=== PATIENT | female | born 1990 | race Caucasian/White ===

== ENCOUNTER 2017-07-12 06:44 | Emergency (ER) | payer SELFPAY ==
[2017-07-12 06:45] VITALS: BP 120/73; PULSE 105; RESP 20; TEMP 37.1; O2SAT 98; BMI 21.2
--- NOTE | 2017-07-12 07:13 | CT_ITS ---
STUDY: CT BRAIN WITHOUT CONTRAST REASON FOR EXAM: Female, 27 years old. 3 day history of fever, headaches and stiff neck. RADIATION DOSAGE (If Supplied By Facility): CTDIvol = ( 44.99 ) mGy, DLP = ( 694.87 ) mGycm TECHNIQUE: Transaxial CT imaging of the brain was performed without administration of intravenous contrast material. Individualized dose optimization techniques were used for this CT. COMPARISON: None. FINDINGS: Normal soft tissue structures. Normal calvarium. Normal size ventricles and extra-axial spaces for the patient's age. Normal white matter tracts of the cerebral hemispheres. Normal basal ganglia and thalami. Normal brainstem. Normal cerebellum. There is no intracranial hemorrhage. There are no findings of an acute ischemic infarction. Normal visualized paranasal sinuses. CT/Brain/Head without Contrast IMPRESSION: Normal unenhanced CT scan of the brain. Electronically Signed: Arslan Fiore MD at 8:25 EDT Tel [phone], Service support ,
--- NOTE | 2017-07-12 07:13 | RAD_ITS ---
STUDY: X-RAY CHEST REASON FOR EXAM: Female, 27 years old. 3 day history of headaches, stiff neck and fever. TECHNIQUE: PA and lateral views of the chest. COMPARISON: None. FINDINGS: The lungs are clear and expanded. There is no demonstrated pleural abnormality. Normal size heart. Normal mediastinum and vish. Normal visualized pulmonary arteries. Normal visualized aortic arch and descending thoracic aorta. Normal visualized thoracic spine. Normal visualized ribs, clavicles, and shoulders. There is no demonstrated abnormality of the visualized soft tissue structures of the upper abdomen. RAD/Chest PA and Lateral IMPRESSION: Normal x-ray examination of the chest. Electronically Signed: Arslan Fiore MD at 8:25 EDT Tel [phone], Service support ,
--- NOTE | 2017-07-12 07:42 | ED.DCSUM_ITS ---
- ER Visit Summary Date of Service: 07/12/17 Chief Complaint: Fever headache neck pain History of Present Illness: The patient is a 27 F who states that 3 days ago she woke with pain in her occipital neck. She states she took her temperature is 100.8. She states that she has been treating the fever. She notes that her headache is generalized and she continues to have the pain in her neck. Is worse with flexion. She denies any URI symptoms. No urinary symptoms. There has been no rash or easy bruising or bleeding. She denies any mosquito bites [place] She notes in May she was scratched by a feral cat. She denies any lymphadenopathy. The patient went to urgent care yesterday and was given azithromycin. She has had 500 mg total. Physical Examination: 98.8 120/73 heart rate 105 respirations are 14 pulse ox 90% on room air Gen: Well-nourished well-developed Head: Normocephalic atraumatic Eyes: Perrl EOMI mild photophobia ENT: TMs clear no rhinorrhea moist mucous membranes Neck: Pain with flexion of the neck no lymphadenopathy no JVD nontender CVS: Regular rate rhythm no murmurs normal S1-S2 Respiratory: No distress clear to auscultation bilaterally chest nontender Abdomen: Soft nontender nondistended normal bowel sounds no masses Back: Nontender Extremity: Nontender no edema Skin: Normal color no rash Neuro: alert orientated ?3 CN II-XII intact normal strength sensation reflexes gait cerebellar Psych: Normal affect normal mood Test Results: CT brain and chest x-ray showed no acute findings. Cell count of LP was no white cells no red cells. Normal glucose protein. Gram stain negative. Basic blood work showed a slight shift and segmented neutrophils at a 7.2 otherwise negative. Influenza negative. Emergency Department Course and Treatment: Patient provided informed consent for lumbar puncture. Patient was laid on her right side and curled into the position. The skin was washed with iodine and sterilely prepped. The skin was locally anesthetized using 3 cc of 1% lidocaine. A 20-gauge spinal needle was introduced through the spinous process with palpable puncture of the dura. Clear spinal fluid was removed. 2 cc ?4 vials were removed. The bevel was orientated longitudinally. Stylette was replaced prior to withdrawal of the needle. Band-Aid was applied and Betadine washed. She will be discharged home with instructions for ibuprofen and/or Tylenol and rest and fluid hydration. She is to follow-up with primary care in 5-7 days if not improved. Impression: 1. Viral syndrome 2. Lumbar puncture by emergency physician This note was generated with [employer] dictation software. It may contain incorrect words, spelling, and punctuation that were not noted in review of the chart prior to signing ED Disposition - Plan for ED Patient: Disposition: Home or Assisted Living Chief Complaint: Fever Instructions: ED Viral Syndrome Referrals: Domingo Jain MD [STAFF PHYSICIAN] - (call to arrange follow up appointment )
--- NOTE | 2017-07-12 07:47 | CYSPIN_PTH ---
PATIENT: JULIAN MOTLEY LOC: ED U#:[id number] AGE/SX: 27/F ROOM: RE07/12/[address]: Dr. Kirk Hawkins DO : 1990 BED: DIS: 07/12/2017 SPEC #: [id number] RECD: 07/12/17 11:51 STATUS: MOY MATT #: [id number] LATOYA: 07/12/17 07:[address]: Kirk Hawkins DEPT: CYTOLOGY RECD BY: Sarkis Garcia ENTERED: 07/12/17 11:51 SP TYPE: CYSPIN FL OT DR: No Primary Care Phys Tissues: Cerebrospinal Fluid Procedures: Pap Stain (control) Special Stain Group II Cytospin Fluid HEADER OPERATION: Lumbar puncture PRE-OP DIAGNOSIS: Fever, headache, neck pain TISSUE SUBMITTED: Cerebrospinal fluid for cytology DIAGNOSIS CYTOLOGY Cerebrospinal fluid for cytology (cytospin): Acellular specimen. SJ:lety 07/15/17 CYTOLOGY STUDY Slides are reviewed. CYTOLOGY GROSS Received is 1 ml of clear colorless fluid labeled with the patient's name and and designated per the requisition as CSF. Submitted for cytology preparation. / 07/12/17 TC:4 CPT: 06746
[2017-07-12 07:52] LABS: Absolute Lymphocyte Count 0.64 X10^3/ul (0.83-4.51); Absolute Neutrophil Count 8.7 X10^3/uL (2.0-7.7); Basophil# 0.02 X10^3/uL; Basophil% 0.2 % (0-1); Eosinophil# 0.01 X10^3/uL; Eosinophils% 0.1 % (0-5); Hematocrit 40.3 % (37-47); Hemoglobin 13.6 g/dl (12.0-15.0); Lymphocyte # 0.64 X10^3/ul (4.0); Lymphocyte % 6.5 % (19-41); Mean Corp Hgb Conc 33.7 g/gl (32-36); Mean Corpuscular Hgb 30.5 pg (27.0-32.0); Mean Corpuscular Volume 90.4 fL (81-99); Mean Platelet Vol. 9.4 fl (6.2-12.0); Monocyte# 0.58 X10^3/uL; Monocyte% 5.9 % (0-10); Neutrophil # 8.65 X10^3/uL (2.7-7.7); Neutrophil % 87.2 % (47-70); Platelet Count 190 K/mm3 (150-450); RBC Distribution Width CV 12.3 % (11.6-14.6); RBC Distribution Width SD 41.1 fl (35.1-43.9); Red Blood Count 4.46 M/mm3 (4.2-5.4); White Blood Count 9.9 K/mm3 (4.4-11.0)
[2017-07-12 07:53] LABS: POSITIVE COUNT NO; POSITIVE DIFFERENTIAL NO; POSITIVE MORPHOLOGY NO
[2017-07-12 08:03] LABS: AST(SGOT) 10 U/L (15-37); Alanine Aminotransfer ALT/SGPT 15 U/L (13-56); Albumin, Serum 4.1 g/dL (3.2-5.0); Alkaline Phosphatase 50 U/L (45-117); Anion Gap 10 (5-15); BUN 8 mg/dL (7-18); BUN/Creat Ratio 10.4 RATIO (10-20); Calcium,Total 8.9 mg/dL (8.5-10.1); Chloride 101 mmol/L (98-107); Creatinine, Serum 0.77 mg/dL (0.55-1.02); EST Glomerular Filtration Rate 94 mL/min (>60); Est Glom Filt Rate - Afr Amer 114 mL/min (>60); Glucose 97 mg/dL (74-106); Potassium 3.4 mmol/L (3.5-5.1); Protein, Total 8.1 g/dL (6.4-8.2); Sodium Level 138 mmol/L (136-145)
[2017-07-12 08:08] LABS: Prothrombin Time (Protime)PT. 13.5 SECONDS (11.7-14.9)
[2017-07-12 08:09] LABS: Partial Thromboplast Time 29.7 Seconds (24.1-36.2)
[2017-07-12 08:12] LABS: Lactic Acid 0.9 mmol/L (0.4-2.0)
[2017-07-12 08:21] VITALS: BP 112/67; PULSE 102; RESP 19; O2SAT 97
[2017-07-12 08:47] LABS: Cytology, Body Fluid / CSF SEE PATHOLOGY REPORT
[2017-07-12 09:17] LABS: Glucose Spinal Fluid 62 mg/dL (40-75)
[2017-07-12 09:18] LABS: Appearance CSF (character) CLEAR (Clear); Auto B Fluid Analyzer BKGD Ct COUNTS W/IN LIMITS (W/IN LIMITS); CSF Color COLORLESS (Colorless); Tested Tube # 4
[2017-07-12 09:19] LABS: RBC Count, Spinal Fluid 0 /mm-3 (None seen)
[2017-07-12 09:36] LABS: Red Blood Cells-Urine 0 SEEN /hpf (0-5)
[2017-07-12 09:39] LABS: Internal QC Validated? YES +Cl - CLEAR BKGD
[2017-07-12 09:40] LABS: Color, Urine Yellow (Yellow); Glucose, Dipstick Normal (Normal); Leukocyte Esterase-Dipstick 500 /ul (Negative); Nitrite-Dipstick Negative (Negative); Occult Blood-Urine Negative /ul (Negative); Protein-Dipstick Negative (Negative); Specific Gravity, Urine 1.015 (1.002-1.030); Urine Bilirubin Dipstick Negative (Negative); Urine Clarity Sl. Cloudy (Clear); Urine Urobilinogen Normal (Normal)
[2017-07-12 09:41] LABS: Ketone-Dipstick 150 mg/dl (Negative)
[2017-07-12 09:48] LABS: Pregnancy, Urine Negative Negative
[2017-07-12 09:51] LABS: Bacteria 1+ /hpf (None Seen); Mucous, Urine 1+ /hpf (<or=2+); Squamous Epithelial Cells - UA 5-10 SEEN /hpf (5-10); White Blood Cells 5-10 SEEN /hpf (0-5)
[2017-07-12 10:00] VITALS: BP 112/72; PULSE 99; RESP 16; O2SAT 100
--- NOTE | 2017-07-12 10:34 | ED.RN ---
LAB CONTACTED FOR GRAM STAIN RESULTS
[2017-07-12 11:14] VITALS: BP 114/72; PULSE 83; RESP 16; O2SAT 100
--- NOTE | 2017-07-12 11:15 | ED.RN ---
THIS NURSE REVIEWED D/C INSTRUCTIONS WITH PT. PT VERBALIZED UNDERSTANDING OF INSTRUCTIONS. IV D/C. IV CATHETER INTACT. PT TOLERATED WELL. PT DENIES FURTHER NEEDS OR QUESTIONS AT THIS TIME.
[2017-07-16 11:06] LABS: Pathologist Review Reviewed
== END 2017-07-12 11:16 | disposition home or self-care (01) ==
PROVIDERS: Emergency Provider Emergency Medicine
DX: B34.9 Viral infection, unspecified (principal)
CPT/HCPCS: 36415; 62270; 70450; 71046; 80053; 81001; 81025; 82945; 83605; 84157; 85025; 85610; 85730; 87040; 87070; 87205; 87804; 88108; 88313; 89050; 89051; 99284; A4216

== ENCOUNTER 2018-08-02 18:30 | Emergency (ER) | payer MEDICAID, SELFPAY ==
[2018-08-02 18:33] VITALS: BP 123/71; PULSE 94; RESP 16; TEMP 36.8; O2SAT 99; BMI 22.7
--- NOTE | 2018-08-02 18:45 | ED.VISSUMM ---
- ER Visit Summary Date of Service: 08/02/18 Chief Complaint: Needs tetanus update History of Present Illness: The patient is a 28 F presents to the emergency department with injury to her right long finger. Patient states yesterday, she was trying a place on the hubcap that was positive. States her pain got pinched. States she had a small injury that was bleeding but it is since stopped. Her last tetanus was 12 years ago. She denies other injury. She is otherwise been in her normal state of health. Physical Examination: Exam is relatively unremarkable. Patient is a small abrasion of the distal phalanges on the palmar aspect of the right third finger. There is no streaking. Flexion and extension are preserved. There is no bleeding. The skin does not gap open. Test Results: [] Emergency Department Course and Treatment: The patient does have a well approximated injury. There is nothing that requires primary closure. Her tetanus is updated. She was counseled on wound care. She will be discharged home. Treatment Plan: [] Disposition: Discharge Impression: 1. Tetanus update 2. Finger abrasion This note was generated with [employer] dictation software. It may contain incorrect words, spelling, and punctuation that were not noted in review of the chart prior to signing ED Disposition - Plan for ED Patient: Instructions: ED Laceration Small Superf No Sutr Referrals: Care Physician,No Primary [Primary Care Provider] -
[2018-08-02] MEDS: Diphth,Pertuss(Acell),Tet Vac 0.5 ML Vial IM (19:15)
[2018-08-02 19:18] VITALS: BP 120/70; PULSE 78; RESP 16; O2SAT 98
== END 2018-08-02 19:37 | disposition home or self-care (01) ==
LOC: ED 18:47
PROVIDERS: Emergency Provider Emergency Medicine
DX: S60.412A Abrasion of right middle finger, initial encounter (principal); W23.1XXA Caught, crushed, jammed, or pinched between stationary objects, initial encounter; Y93.89 Activity, other specified; Y92.9 Unspecified place or not applicable
CPT/HCPCS: 90471; 90715; 99282

== ENCOUNTER 2020-07-17 12:33 | Emergency (ER) | payer MEDICAID, SELFPAY ==
[2020-07-17 12:34] VITALS: BP 123/65; PULSE 120; RESP 18; TEMP 36.8; O2SAT 95; BMI 23.8
--- NOTE | 2020-07-17 12:43 | RAD_ITS ---
STUDY: X-RAY CHEST REASON FOR EXAM: Female, 30 years old. sob TECHNIQUE: Single AP portable view of the chest. COMPARISON: 07/12/2017 FINDINGS: The lungs are clear and expanded. There is no demonstrated pleural abnormality. Normal size heart. Normal mediastinum and vish. Normal visualized pulmonary arteries. Normal visualized aortic arch and descending thoracic aorta. Normal visualized thoracic spine. Normal visualized ribs, clavicles, and shoulders. There is no demonstrated abnormality of the visualized soft tissue structures of the upper abdomen. RAD/Chest 1 View (Portable) IMPRESSION: Normal x-ray examination of the chest. Electronically Signed: Sarkis Madison MD at 13:37 EDT Tel , Service support ,
--- NOTE | 2020-07-17 12:43 | EKG12_ITS ---
Test Reason : PALPS Blood Pressure : / mmHG Vent. Rate : 096 BPM Atrial Rate : 096 BPM P-R Int : 118 ms QRS Dur : 078 ms QT Int : 338 ms P-R-T Axes : 055 069 045 degrees QTc Int : 427 ms Sinus rhythm with sinus arrhythmia with occasional Premature ventricular complexes Otherwise normal ECG Confirmed by MICHELLE ALCAZAR, MARK ([id number]), editor producer SHABANA SEPULVEDA ([id number]) on 07/19/2020 9:12:34 AM Referred By: BETO Confirmed By:MARK MARTINEZ MD
--- NOTE | 2020-07-17 12:47 | EX.ED.DYSGE1 ---
HPI History of Present Illness Chief Complaint: Palpitations Informant: patient Onset/Context/Timing Onset: Yesterday Context: Gradual Onset Timing: Continuous Current Severity: Moderate Maximum Severity: Moderate Narrative Narrative: Patient is a 30-year-old female is otherwise healthy on no daily medications who presents to the emergency department palpitations. Patient states that for about the past 24 hours, she is felt like her heart has been skipping beats. She states she feels like sometimes is racing. She denies chest pain or shortness of breath. She states she had palpitations before, but never this prolonged. She does admit to drinking caffeine occasionally. She denies any other stimulant use. She denies any chest pain. Prior similar symptoms: Yes Recent Illness/Hospitalization: No PFSH PFSH no medical history Home Medications NK 07/12/17 [History Last Taken Unknown] Allergy/AdvReac Type Severity Reaction Status Date / Time sulfamethoxazole Allergy Hives Verified 07/17/20 12:36 [From Bactrim] trimethoprim [From Bactrim] Allergy Hives Verified 07/17/20 12:36 no significant family history no surgical history Social History Smoking Status: Never smoker ROS ROS ED Constitutional Constitutional ED: Denies chills or fever(s) Eyes Eyes: Denies blurry vision or change in vision ENT ENT ED: Denies ear pain or sore throat Cardiovascular Cardiovascular: Reports palpitations; Denies chest pain Respiratory/Chest Respiratory/Chest: Denies cough, dyspnea or dyspnea on exertion Gastrointestinal Gastrointestinal: Denies abdominal pain, nausea or vomiting Genitourinary Genitourinary ED: Denies dysuria or urinary frequency Musculoskeletal Musculoskeletal: Denies arthralgias or myalgias Integumentary Denies rash Neurologic Neurologic: Denies headache(s) or paresthesias Psychiatric Psychiatric: Denies anxiety or depression Endocrine Endocrinology: Denies polydipsia or polyuria Allergic/Immunologic Allergic/Immunologic ED: Denies urticaria EXAM Physical Exam Const Vital Signs: 07/17/20 12:34 07/17/20 13:03 07/17/20 14:34 Temperature 98.2 F Temperature Source Temporal Pulse Rate 120 H 84 Respiratory Rate 18 16 Respiratory Effort Normal Non-Labored Respiratory Pattern Normal Blood Pressure 123/65 H 101/59 L Blood Pressure Mean 84 73 Pulse Ox 95 100 Oxygen Delivery Method Room Air Room Air Positive well nourished and well developed General Appearance ED: well developed HEENT Reports normocephalic, head/scalp atraumatic and moist mucous membranes Eyes PERRL and EOMs intact bilaterally Neck no lymphadenopathy and supple General: Negative for tenderness Chest Wall inspection of chest normal Resp normal respiratory effort and clear to auscultation bilaterally Cardio regular rate, regular rhythm and no murmurs GI normal to inspection, nondistended, normoactive bowel sounds Palpation: Negative for tender, guarding or rebound tenderness present Back/Spine no CVA tenderness Cervical Spine: Negative for cervical spine tenderness Thoracic Spine / Upper Back: Negative for thoracic spinal tenderness Extremity normal to inspection General Extremety ED: Negative for tenderness Neuro oriented x3 and CN's II-XII intact bilaterally Neuro Narrative: No focal deficits appreciated. Sensorium / Orientation: alert Psych mental status grossly normal Skin no rashes or lesions noted, no wounds and skin turgor normal MDM MDM MDM Narrative Medical decision making narrative: The patient presents with intermittent palpitations. EKG was obtained. It demonstrated sinus arrhythmia with 1 PVC. She was symptomatic with a PVC. She was kept on a monitor and the PVCs became less frequent. Patient was given fluids and metabolic work-up was pursued. Labs are unremarkable. Patient is not . Electrolytes were normal. I did review the patient's outpatient Holter monitor from last year which did show some PVCs. I am not in a rdz to put the patient on any medication as they are not very frequent and most rate controlling medications have significant side effects, especially for a young healthy female. The patient is comfortable with this plan of care and she will follow up with her guest relations officer as needed. Impression 1. Symptomatic PVCs Lab Data Attestation: I reviewed the patient's lab results. Labs: Laboratory Results - last 24 hr 07/17/20 07/17/20 07/17/20 13:45 13:45 13:45 WBC 4.7 RBC 4.44 Hgb 13.6 Hct 41.3 MCV 93.0 MCH 30.6 MCHC 32.9 RDW Std Deviation 40.9 RDW Coeff of Rom 11.9 Plt Count 253 MPV 9.4 Immature Gran % (Auto) 0.200 Neut % (Auto) 66.1 Lymph % (Auto) 23.1 [place] % (Auto) 8.1 Eos % (Auto) 2.1 Baso % (Auto) 0.4 Absolute Neuts (auto) 3.1 Absolute Lymphs (auto) 1.09 Nucleated RBC % 0 Sodium 140 Potassium 3.7 Chloride 105 Carbon Dioxide 31.0 Anion Gap 4 L BUN 9 Creatinine 0.95 Estim Creat Clear Calc 88.85 Est GFR (MDRD) Af Amer 88 Est GFR (MDRD) Non-Af 73 BUN/Creatinine Ratio 9.5 L Glucose 83 Calcium 9.4 Magnesium 2.3 Total Bilirubin 0.30 AST 11 L ALT 14 Alkaline Phosphatase 55 Total Protein 7.2 Albumin 3.8 Globulin 3.4 Albumin/Globulin Ratio 1.1 Serum , Qual NEGATIVE Radiography Chest X-Ray - ED: 1 View, Read by ED Physician, Normal, Heart, Lungs, Mediastinum, Bony Structures and No Acute Disease Diagnostic Testing: Radiology Impression Chest X-Ray 07/17/20 12:43 IMPRESSION: Normal x-ray examination of the chest. Electronically Signed: Sarkis Madison MD at 13:37 EDT Tel , Service support , EKG Initial EKG: Attestation: I personally reviewed and interpreted this EKG as follows: Interpretation: Sinus Arrythmia Comments: Single PVC. Sinus arrhythmia. No acute ischemia. Prior EKG tracings: available for review Prior: Unchanged Discharge Plan Triage Chief Complaint: Palpitations ED Provider: Gustavo Guillaume Dx/Rx/DC Orders Instructions: Premature Ventricular Contractions Prescriptions: No Action NK RF: 0 Primary Care Provider: Parminder Alejandre Referrals: Parminder Alejandre MD [Primary Care Provider] -
[2020-07-17] MEDS: 0.9% Normal Saline 1,000 ML 1000 ML IV (14:00)
[2020-07-17 14:05] LABS: Absolute Lymphocyte Count 1.09 X10^3/uL (0.83-4.51); Absolute Neutrophil Count 3.1 X10^3/uL (2.0-7.7); Basophil# 0.02 X10^3/uL; Basophil% 0.4 % (0-1); Eosinophils% 2.1 % (0-5); Hematocrit 41.3 % (37-47); Hemoglobin 13.6 g/dL (12.0-15.0); Lymphocyte # 1.09 X10^3/ul (0.83-4.51); Lymphocyte % 23.1 % (19-41); Mean Corp Hgb Conc 32.9 g/dL (32-36); Mean Corpuscular Hgb 30.6 pg (27.0-32.0); Mean Platelet Vol. 9.4 fl (6.2-12.0); Monocyte# 0.38 X10^3/uL; Monocyte% 8.1 % (0-10); NRBC Flagged by Analyzer 0 % (0-5); Neutrophil # 3.12 X10^3/uL (2.7-7.7); Neutrophil % 66.1 % (47-70); Platelet Count 253 K/mm3 (150-450); RBC Distribution Width CV 11.9 % (11.6-14.6); RBC Distribution Width SD 40.9 fl (35.1-43.9); Red Blood Count 4.44 M/mm3 (4.2-5.4); White Blood Count 4.7 K/mm3 (4.4-11.0)
[2020-07-17 14:15] LABS: Internal QC Validated? YES +Cl - CLEAR BKGD; Pregnancy, Serum, hCG Quali. NEGATIVE Negative
[2020-07-17 14:22] LABS: ALB/GLOB Ratio 1.1 RATIO (0.9-2.4); AST(SGOT) 11 U/L (15-37); Alanine Aminotransfer ALT/SGPT 14 U/L (13-56); Albumin, Serum 3.8 g/dL (3.2-5.0); Alkaline Phosphatase 55 U/L (45-117); Anion Gap 4 (5-15); BUN 9 mg/dL (7-18); BUN/Creat Ratio 9.5 RATIO (10-20); Calcium,Total 9.4 mg/dL (8.5-10.1); Chloride 105 mmol/L (98-107); Creatinine, Serum 0.95 mg/dL (0.55-1.02); EST Glomerular Filtration Rate 73 mL/min (>60); Est Glom Filt Rate - Afr Amer 88 mL/min (>60); Estimated Creatinine Clearance 88.85 ml/min; Globulin 3.4 g/dL (2.2-4.2); Glucose 83 mg/dL (74-106); Magnesium 2.3 mg/dL (1.6-2.6); Potassium 3.7 mmol/L (3.5-5.1); Protein, Total 7.2 g/dL (6.4-8.2); Sodium Level 140 mmol/L (136-145)
[2020-07-17 14:34] VITALS: BP 101/59; PULSE 84; RESP 16; O2SAT 100
[2020-07-17 15:06] VITALS: BP 104/62; PULSE 83; RESP 18; O2SAT 99
== END 2020-07-17 15:11 | disposition home or self-care (01) ==
LOC: ED 13:08
PROVIDERS: Emergency Provider Emergency Medicine; PCP Family Medicine
DX: I49.3 Ventricular premature depolarization (principal)
CPT/HCPCS: 71045; 80053; 83735; 84703; 85025; 93005; 99285